=== PATIENT | female | born 1985 | race African-American/Black ===

== ENCOUNTER 2017-01-10 15:47 | Emergency (ER) | payer OTHER ==
[2017-01-10] MEDS ORDERED: KETOROLAC TROMETHAMINE 60 MG/2 ML SDV IM ONE (17:11)
[2017-01-10] MEDS ORDERED: PROMETHAZINE HCL 25 MG TABLET PO ONE (17:11)
[2017-01-10] MEDS ORDERED: DIPHENHYDRAMINE HCL 25 MG CAPSULE PO ONE (17:11)
--- NOTE | 2017-01-10 17:13 | ER Document Report ---
ED General - General Chief Complaint: Headache, Worst Ever Stated Complaint: POSSIBLE MIGRAINE Time Seen by Provider: 01/10/17 17:11 Mode of Arrival: Ambulatory Information source: Patient Notes: Pt presents to the ED with c/o bad headache. Reports it started today at around 1100 before she went to the gym. After she worked out she went home. She felt sick, laid down slept for one hour. Woke up with her head hurting more, like a hammer pounding in her head. She drank water. Reports she vomited three times. Did not take anything for her headache. Reports hx of LERMA, but none this bad. Usually goes away after she sleeps and drinks water. Denies light/noise sensitivity. Came to the ED because her grandmother had an aneyrsm when she was in her 50's. Denies trauma, denies f/d. Reports hx of LERMA. TRAVEL OUTSIDE OF THE [place] IN LAST 30 DAYS: No - HPI Onset: This afternoon Onset/Duration: Persistent Quality of pain: Other - Hammer banging Severity: Severe Pain Level: 5 Associated symptoms: Nausea, Vomiting Exacerbated by: Denies Relieved by: Denies Similar symptoms previously: Yes Recently seen / treated by doctor: No - Related Data Allergies/Adverse Reactions: No Known Allergies Allergy (Verified 01/10/17 18:07) Past Medical History - General Information source: Patient Last Menstrual Period: nuvaring - Social History Smoking Status: Unknown if Ever Smoked Cigarette use (# per day): No Frequency of alcohol use: None Drug Abuse: None Occupation: [employer] and [employer] Family History: Other - grandmother aneyrsm. denies: CAD Patient has suicidal ideation: No Patient has homicidal ideation: No - Past Medical History Cardiac Medical History: Reports: Hx Hypertension Denies: Hx Coronary Artery Disease, Hx Heart Attack, Hx Hypercholesterolemia Neurological Medical History: Reports: Hx Migraine Endocrine Medical History: Denies: Hx Diabetes Mellitus Type 1 Renal/ Medical History: Denies: Hx Peritoneal Dialysis Past Surgical History: Reports: Hx Breast Surgery - biospies x2, Hx Tubal Ligation - Immunizations Hx Diphtheria, Pertussis, Tetanus Vaccination: Yes Review of Systems - Review of Systems Notes: Review HPI for review of systems., All other systems negative Physical Exam - Vital signs Vitals: Temp Pulse Resp BP Pulse Ox 98.3 F 86 18 136/89 H 99 01/10/17 16:04 01/10/17 16:04 01/10/17 16:04 01/10/17 16:04 01/10/17 16:04 - Notes Notes: PHYSICAL EXAMINATION: GENERAL: Well-appearing and in no acute distress HEAD: Atraumatic, normocephalic. EYES: Pupils equal round and reactive to light, extraocular movements intact, sclera anicteric, conjunctiva are normal. ENT: nares patent, oropharynx clear without exudates. Moist mucous membranes. NECK: Normal range of motion, supple without lymphadenopathy LUNGS: CTAB and equal. No wheezes rales or rhonchi. HEART: Regular rate and rhythm without murmurs ABDOMEN: Soft, no tenderness. No guarding, no rebound EXTREMITIES: Normal range of motion, no pitting edema. No cyanosis. NEUROLOGICAL: Cranial nerves grossly intact. Normal sensory/motor exams. PSYCH: Normal mood, normal affect. 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 still has pounding LERMA, meds just given 15 minutes ago. 01/10/17 18:30 Pt reports LERMA going away, now 3/5. She looks good, no neuro deficits. Discussed risks vs benefits of CT scan. No indicated at this time. No signs of meningitis .Discussed Benadryl Phenergan and ibuprofen for LERMA treatment already discharged. Patient was instructed to take medication before the headache becomes severe. She verbalized understanding. - Vital Signs Vital signs: Temp Pulse Resp BP Pulse Ox 97.3 F 90 20 111/68 99 01/10/17 18:07 01/10/17 18:07 01/10/17 18:07 01/10/17 18:07 01/10/17 16:04 Discharge - Discharge Clinical Impression: Elevated blood pressure reading Headache Qualifiers: Headache type: unspecified Headache chronicity pattern: acute headache Intractability: not intractable Qualified Code(s): R51 - Headache Nausea & vomiting Qualifiers: Vomiting type: unspecified Vomiting Intractability: non-intractable Qualified Code(s): R11.2 - Nausea with vomiting, unspecified Condition: Stable Disposition: HOME, SELF-CARE Instructions: Antinausea Medication ([facility]), Vomiting ([facility]), Toradol Injection ( [facility]), Use of Diphenhydramine, Headache ([facility]), Use of [id number] Ibuprofen ([facility]) Additional Instructions: *You have been evaluated for a headache, nausea/vomiting, elevated blood pressure reading *Take benadryl and Ibuprofen as indicated *Follow up with a primary care provider within one week for recheck *Return to ED for worsening condition, changes, needs, return of headache, concerns Monitor your blood pressure. Your blood pressure was elevated today. This may be because you were anxious, in pain or because you need medication. It is important to follow up with your primary care provider for full evaluation. Forms: Elevated Blood Pressure
[2017-01-10 18:19] VITALS: BP 111/68
[2017-01-10] MEDS ORDERED: ONDANSETRON ODT 4 MG TAB (6 TAB/DSPK) PO PRN (18:33)
== END 2017-01-10 18:43 | disposition home or self-care (01) ==
LOC: ER 15:47
DX: R51 Headache (principal); R11.2 Nausea with vomiting, unspecified; I10 Essential (primary) hypertension; Z98.51 Tubal ligation status
CPT/HCPCS: 99283; 96374; J1885